=== PATIENT | female | born 1950 | race Caucasian/White ===

== ENCOUNTER 2020-12-03 10:03 | Inpatient (IN) | payer MEDICARE, OTHER ==
[~2020-12-03] VITALS: Ht 157.5 cm; Wt 62.1 kg
[2020-12-03 14:00] VITALS: BP 116/64
[2020-12-03 15:30] VITALS: BP 132/69
[2020-12-03] MEDS: ACETAMINOPHEN 325 MG TABLET PO PRN (16:28)
[2020-12-03] MEDS: GABAPENTIN 100 MG CAPSULE PO SCH ×2 (16:28→20:09)
[2020-12-03] MEDS: BusPIRone HCL 5 MG TABLET PO SCH (20:09)
[2020-12-03] MEDS: SENNA 187 MG TABLET PO SCH (20:09)
[2020-12-03] MEDS: MELATONIN 5 MG TABLET PO PRN (20:09)
[2020-12-03] MEDS: DOCUSATE SODIUM 100 MG CAPSULE PO SCH (20:09)
[2020-12-04 03:45] VITALS: BP 118/66
[2020-12-04 07:10] LABS: BASOPHILS % (AUTO) 0.4 % (0.0-2.0); EOSINOPHILS % (AUTO) 1.2 % (1.0-6.0); HEMATOCRIT 34.8 % (36-46); HEMOGLOBIN 11.6 g/dL (12.0-16.0); LYMPHOCYTES # (AUTO) 1.7 K/uL (1.0-4.8); LYMPHOCYTES % (AUTO) 18.1 % (22.0-44.0); MEAN CORPUSCULAR HEMOGLOBIN 27.7 pg (26.0-34.0); MEAN CORPUSCULAR HGB CONC 33.3 G/dL (31.0-37.0); MEAN CORPUSCULAR VOLUME 83 fL (80-100); MONOCYTES # (AUTO) 1.3 K/uL (0.1-1.0); MONOCYTES % (AUTO) 13.7 % (2.0-9.0); NEUTROPHILS # (AUTO) 6.3 K/uL (1.8-7.7); NEUTROPHILS % (AUTO) 66.6 % (40.0-70.0); PLATELET COUNT (AUTO) 233 K/uL (150-450); RED BLOOD CELL COUNT(AUTO) 4.19 MIL/uL (4.00-5.20); RED CELL DISTRIBUTION WIDTH 15.1 % (11.5-14.5)
[2020-12-04 07:24] LABS: ALANINE AMINOTRANSFERASE 30 U/L (12-78); ALBUMIN 3.2 g/dL (3.4-5.0); ALKALINE PHOSPHATASE 58 U/L (46-116); ANION GAP 6 mmol/L (8-16); ASPARTATE AMINOTRANSFERASE 34 U/L (15-37); BILIRUBIN,TOTAL 1.3 mg/dL (0.1-1.0); CARBON DIOXIDE 28 mmol/L (22-29); CHLORIDE 102 mmol/L (98-107); CREATININE 0.87 mg/dL (0.60-1.30); GLUCOSE,RANDOM 110 mg/dL (70-110); POTASSIUM 3.9 mmol/L (3.5-5.1); SODIUM SERUM 136 mmol/L (136-145); TOTAL PROTEIN, SERUM 7.4 g/dL (6.4-8.2); UREA NITROGEN, BLOOD 18 mg/dL (7-18)
[2020-12-04 07:25] LABS: GLOMERULAR FILTR. RATE CALC > 60 mL/min (>60)
[2020-12-04 07:42] VITALS: BP 104/63
[2020-12-04] MEDS: BusPIRone HCL 5 MG TABLET PO SCH ×2 (08:38→18:55)
[2020-12-04] MEDS: GABAPENTIN 100 MG CAPSULE PO SCH ×3 (08:38→18:55)
[2020-12-04] MEDS: DOCUSATE SODIUM 100 MG CAPSULE PO SCH ×2 (08:38→18:54)
[2020-12-04] MEDS: DULoxetine HCL 20 MG CAPSULE PO SCH (08:38)
[2020-12-04] MEDS: METOPROLOL SUCCINATE 25 MG ER TABLET PO SCH (08:38)
[2020-12-04] MEDS: ETHYL ALCOHOL 62% ANTISEPTIC NASAL INHALANT 0.6 ML AMPUL NASAL SCH ×2 (08:38→18:54)
[2020-12-04 16:12] VITALS: BP 124/74
[2020-12-04] MEDS: ACETAMINOPHEN 325 MG TABLET PO PRN (16:12)
[2020-12-04] MEDS: SENNA 187 MG TABLET PO SCH (18:55)
[2020-12-04] MEDS: LORazepam 0.5 MG TABLET PO PRN (18:55)
[2020-12-05] VITALS: BP 113/58
[2020-12-05 08:02] VITALS: BP 107/64
[2020-12-05] MEDS: ETHYL ALCOHOL 62% ANTISEPTIC NASAL INHALANT 0.6 ML AMPUL NASAL SCH ×2 (08:42→20:47)
[2020-12-05] MEDS: DOCUSATE SODIUM 100 MG CAPSULE PO SCH ×2 (08:42→20:50)
[2020-12-05] MEDS: BusPIRone HCL 5 MG TABLET PO SCH ×2 (08:43→20:49)
[2020-12-05] MEDS: GABAPENTIN 100 MG CAPSULE PO SCH ×3 (08:43→20:48)
[2020-12-05] MEDS: METOPROLOL SUCCINATE 25 MG ER TABLET PO SCH (08:43)
[2020-12-05] MEDS: DULoxetine HCL 20 MG CAPSULE PO SCH (09:07)
[2020-12-05 16:33] VITALS: BP 129/75
[2020-12-05] MEDS: SENNA 187 MG TABLET PO SCH (20:50)
[2020-12-05] MEDS: MELATONIN 5 MG TABLET PO PRN (20:51)
[2020-12-06 01:37] VITALS: BP 123/68
[2020-12-06 08:00] VITALS: BP 115/67
[2020-12-06] MEDS: ETHYL ALCOHOL 62% ANTISEPTIC NASAL INHALANT 0.6 ML AMPUL NASAL SCH ×2 (08:10→20:34)
[2020-12-06] MEDS: GABAPENTIN 100 MG CAPSULE PO SCH ×3 (08:10→20:35)
[2020-12-06] MEDS: DULoxetine HCL 20 MG CAPSULE PO SCH (08:10)
[2020-12-06] MEDS: METOPROLOL SUCCINATE 25 MG ER TABLET PO SCH (08:10)
[2020-12-06] MEDS: BusPIRone HCL 5 MG TABLET PO SCH ×2 (08:10→20:34)
[2020-12-06] MEDS: DOCUSATE SODIUM 100 MG CAPSULE PO SCH ×2 (08:11→20:35)
[2020-12-06 16:05] VITALS: BP 135/69
[2020-12-06] MEDS: MELATONIN 5 MG TABLET PO PRN (20:35)
[2020-12-06] MEDS: SENNA 187 MG TABLET PO SCH (20:35)
[2020-12-07 02:19] VITALS: BP 128/69
[2020-12-07] MEDS: BusPIRone HCL 5 MG TABLET PO SCH ×2 (08:02→20:45)
[2020-12-07] MEDS: DULoxetine HCL 20 MG CAPSULE PO SCH (08:02)
[2020-12-07] MEDS: METOPROLOL SUCCINATE 25 MG ER TABLET PO SCH (08:02)
[2020-12-07] MEDS: ETHYL ALCOHOL 62% ANTISEPTIC NASAL INHALANT 0.6 ML AMPUL NASAL SCH ×2 (08:02→20:44)
[2020-12-07] MEDS: DOCUSATE SODIUM 100 MG CAPSULE PO SCH ×2 (08:03→20:45)
[2020-12-07] MEDS: GABAPENTIN 100 MG CAPSULE PO SCH ×3 (08:03→20:45)
[2020-12-07 08:10] VITALS: BP 132/64
[2020-12-07 16:02] VITALS: BP 128/70
[2020-12-07] MEDS: SENNA 187 MG TABLET PO SCH (20:45)
[2020-12-07] MEDS: TAMSULOSIN HCL 0.4 MG CAPSULE PO SCH (20:45)
[2020-12-07] MEDS: MELATONIN 5 MG TABLET PO PRN (20:45)
[2020-12-08 04:45] VITALS: BP 111/64
[2020-12-08] MEDS: DULoxetine HCL 20 MG CAPSULE PO SCH (08:07)
[2020-12-08] MEDS: BusPIRone HCL 5 MG TABLET PO SCH ×2 (08:07→21:13)
[2020-12-08] MEDS: DOCUSATE SODIUM 100 MG CAPSULE PO SCH ×2 (08:07→20:15)
[2020-12-08] MEDS: METOPROLOL SUCCINATE 25 MG ER TABLET PO SCH (08:08)
[2020-12-08] MEDS: GABAPENTIN 100 MG CAPSULE PO SCH ×3 (08:08→21:13)
[2020-12-08] MEDS: ETHYL ALCOHOL 62% ANTISEPTIC NASAL INHALANT 0.6 ML AMPUL NASAL SCH ×2 (08:09→21:13)
[2020-12-08 08:10] VITALS: BP 107/60
[2020-12-08] MEDS: MULTIVITAMINS WITH MINERALS, THERAPEUTIC TABLET PO SCH (10:01)
[2020-12-08 16:02] VITALS: BP 115/79
[2020-12-08] MEDS ORDERED: BUSP5TAB20 PO (17:43)
[2020-12-08] MEDS ORDERED: TAMS-13 PO (17:43)
[2020-12-08] MEDS ORDERED: DULO20CA27 PO (17:47)
[2020-12-08] MEDS ORDERED: GABA-1216 PO (17:47)
[2020-12-08] MEDS ORDERED: METO25 PO (17:47)
[2020-12-08] MEDS ORDERED: MULT-248 PO (17:47)
[2020-12-08] MEDS: SENNA 187 MG TABLET PO SCH (20:24)
[2020-12-08] MEDS: TAMSULOSIN HCL 0.4 MG CAPSULE PO SCH (21:13)
[2020-12-08] MEDS: MELATONIN 5 MG TABLET PO PRN (21:14)
[2020-12-09 03:00] VITALS: BP 101/63
[2020-12-09] MEDS: DOCUSATE SODIUM 100 MG CAPSULE PO SCH (07:29)
[2020-12-09] MEDS: ETHYL ALCOHOL 62% ANTISEPTIC NASAL INHALANT 0.6 ML AMPUL NASAL SCH ×2 (07:30→20:41)
[2020-12-09] MEDS: MULTIVITAMINS WITH MINERALS, THERAPEUTIC TABLET PO SCH (07:30)
[2020-12-09] MEDS: BusPIRone HCL 5 MG TABLET PO SCH ×2 (07:30→20:41)
[2020-12-09] MEDS: DULoxetine HCL 20 MG CAPSULE PO SCH (07:30)
[2020-12-09] MEDS: GABAPENTIN 100 MG CAPSULE PO SCH ×3 (07:30→20:41)
[2020-12-09] MEDS: METOPROLOL SUCCINATE 25 MG ER TABLET PO SCH (07:30)
[2020-12-09 09:00] VITALS: BP 96/57
[2020-12-09] MEDS ORDERED: DOCUSATE SODIUM 100 MG CAPSULE PO PRN (15:00)
[2020-12-09] MEDS ORDERED: SENNA 187 MG TABLET PO PRN (15:00)
[2020-12-09 16:06] VITALS: BP 109/68
[2020-12-09] MEDS: TAMSULOSIN HCL 0.4 MG CAPSULE PO SCH (20:41)
[2020-12-09] MEDS: MELATONIN 5 MG TABLET PO PRN (20:41)
[2020-12-10 00:15] VITALS: BP 123/64
[2020-12-10] MEDS: METOPROLOL SUCCINATE 25 MG ER TABLET PO SCH (08:08)
[2020-12-10] MEDS: DULoxetine HCL 20 MG CAPSULE PO SCH (08:09)
[2020-12-10] MEDS: BusPIRone HCL 5 MG TABLET PO SCH ×2 (08:09→20:33)
[2020-12-10] MEDS: ETHYL ALCOHOL 62% ANTISEPTIC NASAL INHALANT 0.6 ML AMPUL NASAL SCH ×2 (08:10→20:33)
[2020-12-10] MEDS: MULTIVITAMINS WITH MINERALS, THERAPEUTIC TABLET PO SCH (08:10)
[2020-12-10] MEDS: GABAPENTIN 100 MG CAPSULE PO SCH ×3 (08:10→20:33)
[2020-12-10 10:23] VITALS: BP 112/57
[2020-12-10] MEDS ORDERED: INFLUENZA VIRUS VACCINE QVS 2021-22 (6MO+)/PF 60 MCG/0.5 ML SYRINGE IM. ONE (14:00)
[2020-12-10] MEDS: ACETAMINOPHEN 325 MG TABLET PO PRN (14:50)
[2020-12-10 15:59] VITALS: BP 105/64
[2020-12-10] MEDS: TAMSULOSIN HCL 0.4 MG CAPSULE PO SCH (20:33)
[2020-12-11 00:30] VITALS: BP 102/54
[2020-12-11] MEDS: ACETAMINOPHEN 325 MG TABLET PO PRN ×2 (00:30→08:01)
[2020-12-11] MEDS: LORazepam 0.5 MG TABLET PO PRN (00:30)
[2020-12-11] MEDS: BusPIRone HCL 5 MG TABLET PO SCH (08:00)
[2020-12-11] MEDS: GABAPENTIN 100 MG CAPSULE PO SCH (08:00)
[2020-12-11] MEDS: MULTIVITAMINS WITH MINERALS, THERAPEUTIC TABLET PO SCH (08:00)
[2020-12-11] MEDS: ETHYL ALCOHOL 62% ANTISEPTIC NASAL INHALANT 0.6 ML AMPUL NASAL SCH (08:00)
[2020-12-11] MEDS: DULoxetine HCL 20 MG CAPSULE PO SCH (08:00)
[2020-12-11] MEDS: METOPROLOL SUCCINATE 25 MG ER TABLET PO SCH (08:00)
[2020-12-11 08:30] VITALS: BP 103/50
[2020-12-11] MEDS ORDERED: METO25XL PO (11:17)
== END 2020-12-11 14:10 | disposition home health service (06) | DRG 65 ==
LOC: 2WR 13:45
PROVIDERS: ADMIT Physical Medicine & Rehabilitation; ATTEND Physical Medicine & Rehabilitation
DX: I63.9 Cerebral infarction, unspecified (principal); G81.91 Hemiplegia, unspecified affecting right dominant side; R47.01 Aphasia; F41.9 Anxiety disorder, unspecified; I10 Essential (primary) hypertension; G47.00 Insomnia, unspecified; R56.9 Unspecified convulsions; K59.00 Constipation, unspecified
CPT/HCPCS: 80053; 85025; 87081; 90686; 92507; 92523; 93970; 97110; 97112; 97116; 97150; 97163; 97165; 97530; 97535; 99366; Q9967